=== PATIENT | male | born 1985 | race Caucasian/White ===

== ENCOUNTER 2016-12-22 19:47 | Emergency (ER) | payer OTHER ==
[~2016-12-22] VITALS: Ht 175.3 cm; Wt 93.7 kg
[~2016-12-22 19:47] MED LIST: DIVA500T4 PO
[2016-12-22] MEDS ORDERED: ONDANSETRON 2MG/ML, 2ML IVPush ONE (21:00)
[2016-12-22] MEDS ORDERED: SODIUM CHLORIDE 0.9% 1,000ML IVBOLUS ONE (21:00)
[2016-12-22] MEDS ORDERED: SODIUM CHLORIDE FLUSH 10ML SYR IVF ONE (21:00)
[2016-12-22] MEDS ORDERED: ONDANSETRON 2MG/ML, 2ML ONE (21:07)
[2016-12-22 21:12] LABS: BLOOD UREA NITROGEN 12 mg/dL (7-18)
[2016-12-22 21:15] LABS: ASPARTATE AMINO TRANSFERASE 41 U/L (15-37)
[2016-12-22 22:10] VITALS: BP 127/79
== END 2016-12-22 22:14 | disposition home or self-care (01) ==
LOC: ED 22:08
DX: R53.1 Weakness (principal); R11.0 Nausea; R53.83 Other fatigue
CPT/HCPCS: 36415; 80053; 80164; 81003; 83690; 85025; 96361; 96374; 99284; J2405; J7030